=== PATIENT | female | born 1995 | race Hispanic/Latino ===

== ENCOUNTER 2024-05-11 19:26 | Emergency (ER) | payer BC ==
[2024-05-11] MEDS ORDERED: Ibuprofen 200 MG TAB ONE (19:47)
[2024-05-11 20:25] LABS: SARS-CoV-2 E Target Positive; SARS-CoV-2 N2 Target Positive; SARS-CoV-2 NAA Rapid Test DETECTED (NotDetected); SARS-CoV-2 RdRP gene Positive
== END 2024-05-11 20:40 | disposition home or self-care (01) ==
LOC: BURERS 19:26
DX: U07.1 COVID-19 (principal)
CPT/HCPCS: 99283; U0002